=== PATIENT | female | born 1990 ===

== ENCOUNTER 2016-10-08 15:58 | Emergency (ER) | payer OTHER ==
[~2016-10-08] VITALS: Ht 160 cm; Wt 113.6 kg
[2016-10-08 16:09] VITALS: BP 114/67; PULSE 125; RESP 20; O2SAT 92
--- NOTE | 2016-10-08 17:09 | ED.REPORT ---
[id number] Illness Date of Service Oct 08, 2016 ED Provider: Ishmael Barber Pt is a 26 y/o healthy female presenting to the ED c/o flu-like symptoms onset yesterday. She c/o myalgias, fever (102.6 F), sore throat, headache, nausea, cough, nasal congestion. She denies dysuria, urinary frequency, diarrhea, vomiting, CP, abdominal pain, SOB. She has no sick contacts and did not receive her seasonal flu vaccination. Nursing Notes Stated Complaint: FEVER,THROAT HURTS,BODY ACHES Chief Complaint: FLU/Cold Symptoms Nursing Notes Reviewed: Yes Allergies: Coded Allergies: No Known Allergies (Unverified , 10/08/16) Scheduled Oseltamivir Phosphate (Tamiflu) 75 Mg Capsule 75 MG PO BID Scheduled PRN Ibuprofen (Ibuprofen) 800 Mg Tablet 800 MG PO TID PRN PRN For Pain Ondansetron ODT (Zofran ODT) 4 Mg Tablet 4 MG PO Q4H PRN PRN For Nausea General Time Seen by Provider: 17:09 Chief Complaint Body aches Hx Obtained From: Patient Arrived By: Walk-in Onset Occurred: Yesterday Symptom Duration: Since onset Progression Since Onset: Unchanged Quality: Aching (Myalgias) Severity: Current: Mild Severity: Maximum: Mild Context: Immunization Status Immunizations Not Up to Date: Seasonal influenza Similar Sx Previous: No Past Medical History Past Medical History Healthy Past Surgical History None reported Smoking History Unknown if Ever Smoker Ambulatory Status Independent Review of Systems Constitutional: Reports: Chills, Fatigue, Fever Ears / Nose / Throat: Reports: Nasal congestion, Sore throat Respiratory: Reports: Non-productive cough, Denies: Shortness of breath Cardiovascular: Denies: Chest pain GI: Reports: Nausea, Denies: Abdominal pain, Diarrhea, Vomiting Musculoskeletal: Reports: Myalgia Neurologic: Reports: Headache, Lightheaded Complete sys rev & neg: except as marked. Female: Denies: Dysuria, Hematuria, Urinary frequency Physical Exam Initial Vital Signs Initial VS: Reviewed Head / Eyes: Atraumatic, Normocephalic, PERRL Abdomen / GI: Soft, Non-tender, No guarding, No rebound, No distention Extremities: Vascular intact, Neuro intact, No swelling, No tenderness Psychiatric: Mood/affect normal, Behavior normal, Normal thought content General/Constitutional: Awake, Alert, No acute distress, Cooperative, Not toxic appearing Appearance / Presentation: Positive: Obese Neck: Atraumatic, Supple, No meningismus, Full range of motion, No adenopathy Respiratory / Chest: Atraumatic, Breath sounds NL, Breath sounds = bilat, No respiratory distress, No rales, No rhonchi, No wheezing, No retractions Cardiovascular: Heart rate NL, Regular rhythm, Heart sounds NL, No gallop, No murmurs, No rubs, Cap refill not delayed, Peripheral circulation NL Skin: Atraumatic, Color NL, Warm, Dry Neurologic: Oriented X3, Speech NL, No motor deficits, No sensory deficits, Memory NL ENT: Atraumatic, Airway patent, Mucous membranes moist, Pharynx NL, No peritonsillar abscess, No pooling of secretions Back: Atraumatic, Full range of motion, No midline vertebral tend, No CVA tenderness Mild generalized lower back pain to palpation Re-Evaluation & MDM Re-Evaluation/Progress : Time of Eval: 18:02 Re-Evaluation/Progress Note: Pt rechecked. Discussed positive flu. Informed pt of plan for treatment. Pt understands and agrees with plan for treatment. F/U and RTER warnings given. All questions addressed. Counseled Regarding: Diagnosis, Lab results, Need for follow-up, When/why to return to ED Patient Discharge & Departure Impression: Primary Impression: Influenza A Disposition: Home Discharge Condition All VS Reviewed: Yes Condition: Stable Patient Instructions: Influenza (ED) Additional Instructions: Your flu swab was positive, you have Influenza A. Take Tamiflu as directed. Keep yourself well hydrated. This is important. Try to stay out of contact of newborns or the elderly as the flu can be quite dangerous in very old or very young people. Return to the emergency department if you develop a high fever, persistent vomiting, trouble breathing, you seem to be worsening, or for other concerning symptoms. Follow-up with your doctor as regularly scheduled. Referrals: NOPCP (PCP) Scribe Attestation Portions of this note were transcribed by Steven Hays. I, Dr. Barber personally performed the history, physical exam and medical decision-making; I reviewed and confirmed the accuracy of the information in the transcribed note. Signed by Shamir Ayala, 10/08/16 - 1714 Ishmael Barber DO Oct 08, 2016 17:09 STEVEN HAYS Oct 08, 2016 17:19 Ishmael Barber DO Oct 08, 2016 17:09 STEVEN HAYS Oct 08, 2016 17:19
[2016-10-08] MEDS ORDERED: Ketorolac 30 mg/mL 2 mL Inj IM ONE (17:20)
[2016-10-08] MEDS ORDERED: Ondansetron 8 mg ODT Tablet PO ONE (17:20)
[2016-10-08] MEDS ORDERED: ONDA4TAB9 PO (18:00)
[2016-10-08] MEDS ORDERED: IBUP800T28 PO (18:00)
[2016-10-08] MEDS ORDERED: TAM75UDCAP PO (18:00)
[2016-10-08 18:29] VITALS: BP 114/74; PULSE 118; RESP 20; O2SAT 93
== END 2016-10-08 18:30 | disposition home or self-care (01) ==
LOC: SED 15:58
DX: J10.1 Influenza due to other identified influenza virus with other respiratory manifestations (principal)
CPT/HCPCS: 87804; 96372; 99284; J1885